=== PATIENT | female | born 1990 | race Caucasian/White ===

== ENCOUNTER → 2022-09-13 | Outpatient (CLI) | payer OTHER | END | disposition home or self-care (01) | LOC: NST 13:29 | PROVIDERS: ATTEND Obstetrics & Gynecology Maternal & Fetal Medicine | DX: Z34.83 Encounter for supervision of other normal pregnancy, third trimester (principal) ==

== ENCOUNTER 2022-09-20 14:15 | Inpatient (IN) | payer OTHER ==
[~2022-09-20] VITALS: Ht 167.6 cm; Wt 73.5 kg
[2022-09-21] MEDS ORDERED: FAMOTIDINE20 MG (08:23)
== END 2022-09-23 12:42 | disposition home or self-care (01) | DRG 807 ==
LOC: LDR 14:15 → OB/GYN 14:15
PROVIDERS: ADMIT Obstetrics & Gynecology; ATTEND Obstetrics & Gynecology
PROC: 3E0P7VZ Introduction of Hormone into Female Reproductive, Via Natural or Artificial Opening (ICD-10-PCS; 2022-09-20)
PROC: 4A1HXCZ Monitoring of Products of Conception, Cardiac Rate, External Approach (ICD-10-PCS; 2022-09-20)
PROC: 10E0XZZ Delivery of Products of Conception, External Approach (ICD-10-PCS; principal; 2022-09-21)
PROC: 0KQM0ZZ Repair Perineum Muscle, Open Approach (ICD-10-PCS; 2022-09-21)
PROC: 3E033VJ Introduction of Other Hormone into Peripheral Vein, Percutaneous Approach (ICD-10-PCS; 2022-09-21)
DX: O70.1 Second degree perineal laceration during delivery (principal); Z37.0 Single live birth; Z3A.39 39 weeks gestation of pregnancy; Z20.822 Contact with and (suspected) exposure to COVID-19